=== PATIENT | female | born 1985 ===

== ENCOUNTER 2017-01-27 21:16 | Emergency (ER) | payer MEDICAID ==
[2017-01-27 21:17] VITALS: BMI 26.6
[2017-01-27 21:37] VITALS: O2SAT 100
--- NOTE | 2017-01-27 23:22 | ED PDOC ---
HPI: Headache Time Seen by Provider: 01/27/17 23:05 Chief Complaint (Nursing): Headache Chief Complaint (Provider): Headache History Per: Patient History/Exam Limitations: no limitations Onset/Duration Of Symptoms: Days (1) Current Symptoms Are (Timing): Still Present Severity: Moderate Quality: "Pain" Associated Symptoms: denies: Blurred Vision, Nausea, Vomiting Additional Complaint(s): Mary Ann Amado is a 31 y/o female presenting to the ER on 01/27/2017 with complaints of a headache. Patient reports being struck on the back left side of the head with a soccer ball at 18:00 yesterday. After the moment of impact, she sustained only a headache. Today when she woke up, she experienced exacerbation of the head pain. Patient states she took motrin earlier today for relief but experienced no improvement of pain. She says she felt episodes of dizziness but denies any visual changes/deficits, nausea, vomiting, davis pain, or lost of consciousness. Past Medical History Reviewed: Historical Data, Nursing Documentation, Vital Signs Vital Signs: Last Vital Signs Temp 98.1 F 01/27/17 21:34 Pulse 68 01/27/17 21:34 Resp 18 01/27/17 21:34 BP 107/62 01/27/17 21:34 Pulse Ox 100 01/27/17 21:34 - Medical History PMH: No Chronic Diseases - Surgical History Surgical History: Tonsillectomy - Family History Family History: States: Unknown Family Hx - Immunization History Hx Tetanus Toxoid Vaccination: No Hx Influenza Vaccination: No Hx Pneumococcal Vaccination: No - Home Medications Home Medications: Ambulatory Orders Medication Instructions Recorded Cephalexin [Keflex] 500 mg PO TID #21 tab 01/19/16 Ibuprofen [Motrin] 600 mg PO Q6 PRN #15 tab 01/19/16 - Allergies Allergies/Adverse Reactions: Allergies Allergy/AdvReac Type Severity Reaction Status Date / Time No Known Allergies Allergy Verified 04/19/15 10:57 Review of Systems ROS Statement: Except As Marked, All Systems Reviewed And Found Negative Eyes: Negative for: Vision Change Cardiovascular: Negative for: Light Headedness Gastrointestinal: Negative for: Nausea, Vomiting Musculoskeletal: Negative for: Neck Pain Neurological: Positive for: Headache, Dizziness Physical Exam - Reviewed Nursing Documentation Reviewed: Yes Vital Signs Reviewed: Yes - Physical Exam Appears: Positive for: Non-toxic, No Acute Distress Head Exam: Positive for: ATRAUMATIC, NORMOCEPHALIC Skin: Positive for: Normal Color, Warm, Dry Eye Exam: Positive for: Normal appearance, EOMI, PERRL Neck: Positive for: Normal, Painless ROM Cardiovascular/Chest: Positive for: Regular Rate, Rhythm. Negative for: Murmur Respiratory: Positive for: Normal Breath Sounds. Negative for: Wheezing, Respiratory Distress Extremity: Positive for: Normal ROM. Negative for: Deformity, Swelling Neurologic/Psych: Positive for: Alert, Oriented (x3). Negative for: Motor/ Sensory Deficits - ECG O2 Sat by Pulse Oximetry: 100 Medical Decision Making Medical Decision Makin:05 Initial Impression- Head Injury Initial Plan- * CT Head w/o contrast * Urine Preg * Re-evaluate Documented by Manan Moses, acting as a scribe for Kristi Fish MD. All medical record entries made by the Scribe were at my direction and personally dictated by me. I have reviewed the chart and agree that the record accurately reflects my personal performance of the history, physical exam, medical decision making, and the department course for this patient. I have also personally directed, reviewed, and agree with the discharge instructions and disposition. Disposition - Clinical Impression Clinical Impression: Head injury - Disposition Referrals: Yakov Baig [Other] Disposition: Transfer of Care Disposition Time: 00:00 Condition: STABLE Additional Instructions: Follow up with your PCP in 2-3 days. Instructions: Head Injury (ED) Patient Signed Over To: Constance Laurent Handoff Comments: Pending CT.
--- NOTE | 2017-01-28 00:27 | ED PDOC ---
- ECG O2 Sat by Pulse Oximetry: 100 Medical Decision Making Medical Decision Makin:00 Pt signed out to me by Dr. Polina MD. Pending CT Head, re-evaluation, and disposition. Documented by Manan Moses, acting as a scribe for Constance Laurent MD. 00:51 CT Head FINDINGS: Brain: No acute intracranial hemorrhage. No significant white matter disease. No edema. Ventricles: No significant ventriculomegaly. Bones: No acute displaced fracture. Sinuses: Unremarkable as visualized. No acute sinusitis. Mastoid air cells: Unremarkable as visualized. No mastoid effusion. IMPRESSION: No acute intracranial hemorrhage, or suspicious mass effect CT Report shows no acute findings. Pt will be discharged routinely. Encouraged to schedule follow-up with PMD within 1-2 days. Advised to return if condition persists or worsen. Clinical Impression- Head injury All medical record entries made by the Scribe were at my direction and personally dictated by me. I have reviewed the chart and agree that the record accurately reflects my personal performance of the history, physical exam, medical decision making, and the department course for this patient. I have also personally directed, reviewed, and agree with the discharge instructions and disposition. Disposition Doctor Will See Patient In The: Office Counseled Patient/Family Regarding: Studies Performed, Diagnosis, Need For Followup - Clinical Impression Clinical Impression: Head injury - POA Present On Arrival: None - Disposition Referrals: Yakov Baig [Other] Disposition: Routine/Home Disposition Time: 00:52 Condition: GOOD Additional Instructions: Follow up with your PCP in 2-3 days. Instructions: Head Injury (ED)
--- NOTE | 2017-01-28 00:51 | CT ---
EXAM: CT Head Without Intravenous Contrast CLINICAL HISTORY: 31 years old, female; Pain; Headache; Headache not specified; Additional info: L sided SARAVIA, S/P hit by soccer ball TECHNIQUE: Axial computed tomography images of the head/brain without intravenous contrast. This CT exam was performed using one or more of the following dose reduction techniques: automated exposure control, adjustment of the mA and/or kV according to patient size, and/or use of iterative reconstruction technique. Coronal and sagittal reformatted images were created and reviewed. COMPARISON: No relevant prior studies available. FINDINGS: Brain: No acute intracranial hemorrhage. No significant white matter disease. No edema. Ventricles: No significant ventriculomegaly. Bones: No acute displaced fracture. Sinuses: Unremarkable as visualized. No acute sinusitis. Mastoid air cells: Unremarkable as visualized. No mastoid effusion. IMPRESSION: No acute intracranial hemorrhage, or suspicious mass effect.
[2017-01-28 01:42] VITALS: BP 99/56; PULSE 64; RESP 16; TEMP 97.7
== END 2017-01-28 01:43 | disposition home or self-care (01) ==
LOC: H.ER 21:16
DX: S09.90XA Unspecified injury of head, initial encounter (principal); W21.02XA Struck by soccer ball, initial encounter; Y93.66 Activity, soccer